=== PATIENT | female | born 1945 | race Caucasian/White ===

== ENCOUNTER → 2017-01-30 | Outpatient (CLI) | payer MEDICARE, OTHER ==
[2017-01-30 17:18] LABS: BLOOD UREA NITROGEN 18 mg/dL (7-20); CREATININE RESULT 0.76 mg/dL (0.52-1.25)
== END ==
LOC: LAB 16:55
PROVIDERS: ATTEND Internal Medicine Hematology & Oncology
DX: N28.9 Disorder of kidney and ureter, unspecified (principal)
CPT/HCPCS: 36415; 82565; 84520